=== PATIENT | female | born 1980 | race Caucasian/White ===

== ENCOUNTER 2018-03-27 08:15 | Emergency (ER) | payer OTHER ==
[~2018-03-27] VITALS: Ht 162.6 cm; Wt 59.0 kg
== END 2018-03-27 09:59 | disposition home or self-care (01) ==
LOC: ER 08:15
DX: M94.0 Chondrocostal junction syndrome [Tietze] (principal)

== ENCOUNTER 2019-01-28 19:06 | Emergency (ER) | payer OTHER ==
[~2019-01-28] VITALS: Ht 162.6 cm; Wt 59.0 kg
[2019-01-28] MEDS ORDERED: SYNTHROID50 MCG (19:21)
[2019-01-28] MEDS ORDERED: PEPCID AC20 MG PO (22:54)
[2019-01-28] MEDS ORDERED: ONDANSETRON ODT4 MG SL (22:54)
[2019-01-28] MEDS ORDERED: INTESTINEX680 M1 PO (22:54)
[2019-01-28] MEDS ORDERED: SYNTHROID50 MCG PO (22:55)
== END 2019-01-28 23:06 | disposition home or self-care (01) ==
LOC: ER 19:06
DX: K52.9 Noninfective gastroenteritis and colitis, unspecified (principal)

== ENCOUNTER 2022-08-01 10:00 | Day surgery (SDC) | payer OTHER ==
[~2022-08-01] VITALS: Ht 162.6 cm; Wt 59.0 kg
[~2022-08-01 10:00] MED LIST: INTESTINEX680 M1 PO; LEVOTHYROXINE25 MCG PO; ONDANSETRON ODT4 MG SL; PEPCID AC20 MG PO; SYNTHROID50 MCG; SYNTHROID50 MCG PO
[2022-08-01] MEDS ORDERED: Tylenol #3 PO (10:24)
[2022-08-01] MEDS ORDERED: NAPRELAN500 M1 PO (10:24)
[2022-08-01] MEDS ORDERED: DOXYCYCLINE HY100 MG PO (10:24)
== END 2022-08-01 21:08 | disposition home or self-care (01) ==
LOC: CIR.AMB 10:00
PROVIDERS: ATTEND Obstetrics & Gynecology
DX: Z30.2 Encounter for sterilization (principal); N84.0 Polyp of corpus uteri; D26.1 Other benign neoplasm of corpus uteri; D25.0 Submucous leiomyoma of uterus; Z20.822 Contact with and (suspected) exposure to COVID-19; E03.9 Hypothyroidism, unspecified